=== PATIENT | female | born 1935 | race Caucasian/White ===

== ENCOUNTER 2019-03-05 15:58 | Inpatient (IN) | payer MEDICARE ==
[~2019-03-05] VITALS: Ht 162.6 cm; Wt 68.2 kg
[2019-03-05] MEDS ORDERED: nitroGLYCERIN 0.4mg SUBLingual tab SL PRN ×2 (16:10→17:45)
[2019-03-05] MEDS ORDERED: aspirin 81mg tab.chew PO ONE (16:10)
[2019-03-05 16:40] LABS: BASOPHILS # (AUTO) 0.1 X10'3 (0-0.2); EOSINOPHILS # (AUTO) 0.1 X10'3 (0-0.9); EOSINOPHILS % (AUTO) 1.8 % (0-6); HEMATOCRIT 39.4 % (35.0-45.0); HEMOGLOBIN 13.2 g/dl (12.0-16.0); LYMPHOCYTES # (AUTO) 1.4 X10'3 (1.1-4.8); LYMPHOCYTES % (AUTO) 18.9 % (21-51); MEAN CORPUSCULAR HEMOGLOBIN 30.9 PG (27.0-31.0); MEAN CORPUSCULAR HGB CONC 33.6 g/dL (33.0-36.5); MEAN CORPUSCULAR VOLUME 92.2 FL (78-98); MEAN PLATELET VOLUME 7.6 FL (7.4-10.4); MONOCYTES # (AUTO) 0.8 X10'3 (0-0.9); NEUTROPHILS # (AUTO) 5.2 X10'3 (1.8-7.7); NEUTROPHILS % (AUTO) 68.3 % (42-75); PLATELET COUNT 286 X10'3 (140-440); RED BLOOD COUNT 4.27 X10'6 (4.20-5.60); RED CELL DISTRIBUTION WIDTH 14.3 % (11.5-14.5); WHITE BLOOD COUNT 7.6 X10'3 (4.5-11.0)
[2019-03-05 16:53] LABS: ALANINE AMINOTRANSFERASE 23 U/L (12-78); ALBUMIN/GLOBULIN RATIO 1.2 (1.1-1.5); ALKALINE PHOSPHATASE 71 IU/L (46-116); ANION GAP 9 (8-16); ASPARTATE AMINO TRANSFERASE 17 U/L (10-37); BILIRUBIN,TOTAL 0.6 MG/DL (0.1-1.0); BLOOD UREA NITROGEN 16 MG/DL (7-18); BUN/CREATININE RATIO 16.7 (6.6-38.0); CALCIUM 9.2 MG/DL (8.5-10.1); CHLORIDE 103 MMOL/L (99-107); CREATININE 0.96 MG/DL (0.40-0.90); GLUCOSE 105 MG/DL (70-104); POTASSIUM 3.2 MMOL/L (3.5-5.1); SODIUM 140 MMOL/L (135-145); TOTAL CARBON DIOXIDE 27.9 MMOL/L (24-32); TOTAL PROTEIN 7.4 G/DL (6.4-8.2); eGFR 56 ML/MIN
[2019-03-05] MEDS ORDERED: ATOR10TA PO (17:30)
[2019-03-05] MEDS ORDERED: LEVO100T9 PO (17:30)
[2019-03-05] MEDS ORDERED: ASPI-611 PO (17:30)
[2019-03-05] MEDS ORDERED: HYDR25TA4 PO (17:30)
[2019-03-05] MEDS ORDERED: ondansetron/PF 4mg/2ml inj IV PRN (17:45)
[2019-03-05] MEDS ORDERED: morphine 2 MG/ML inj. syringe IV PRN (17:45)
[2019-03-05] MEDS ORDERED: aminophylline 250mg/10ml inj. IV PRN (17:45)
[2019-03-05] MEDS ORDERED: regadenoson 0.4mg/5ml syringe IV PRN (17:45)
[2019-03-05] MEDS ORDERED: magnesium 4gm in 100ml NS 100 ML IV PRN (17:45)
[2019-03-05] MEDS ORDERED: magnesium 2GM in 50ml NS 50 ML IV PRN (17:45)
[2019-03-05] MEDS ORDERED: potassium Cl 40MEQ/NS 500ml 500 ML IV PRN ×2 (17:45)
[2019-03-05] MEDS ORDERED: HYDROcodone/acetaminophen 5mg/325mg tablet PO PRN (17:45)
[2019-03-05] MEDS ORDERED: metoprolol tartrate 1mg/ml inj IV PRN (17:45)
[2019-03-05] MEDS ORDERED: acetaminophen 325mg tablet PO PRN ×2 (17:45)
[2019-03-05] MEDS ORDERED: magnesium Cl slow-release 64mg tablet PO PRN (17:45)
[2019-03-05] MEDS ORDERED: potassium Cl 20 mEq SR tablet PO PRN ×2 (17:45)
[2019-03-05] MEDS: normal saline 1000ml 1,000 ML IV SCH (18:54)
--- NOTE | 2019-03-05 19:30 | NUR ---
Pt arrived to floor via gurney on monitor. Was able to walk 1PA to bed. Accompanied by . Denies any chest pain at this time. VSS, BP 51, patient states this is normal to her, typically between 50-60 bpm.
[2019-03-05] MEDS: docusate sod 100mg capsule PO SCH (20:00)
[2019-03-05] MEDS: heparin, porcine 5000 units/ml vial SQ SCH (20:00)
[2019-03-05 20:21] VITALS: BP 136/85
--- NOTE | 2019-03-05 21:00 | NUR ---
Patient refused both heparin and colace. Advised of risk vs. benefit of medication. Patient stated her called Dr. De Luna when he arrived home to advise him of the symptoms the patient was feeling. States Dr. De Luna told her to come see him. Patient no longer feels as if she needs to be in the hospital. Explained a stress test will be preformed in the AM to rule abnormalities. Patient seems agreeable at this time.
--- NOTE | 2019-03-05 21:37 | NUR ---
Per supervisor telephone information, patient has been sustained in the 50's, will have temporary drops into 40's. Will continue to monitor.
--- NOTE | 2019-03-05 21:40 | NUR ---
Patient sleeping. Will DART and preform 2 RN Skin check in the AM when lab rounds.
[2019-03-05 22:00] VITALS: BP 154/70
--- NOTE | 2019-03-05 23:35 | NUR ---
service technician informed of pt dropping down to 48 HR. Patient states no symptoms. MD notified that pt typically runs 50-60's at home. MD states when sleeping she will drop down and as long as she is asymptomatic, there is no need to worry.
[2019-03-06] VITALS (10 sets, daily range): BP systolic 120–150; BP diastolic 54–65
[2019-03-06 04:13] LABS: BASOPHILS # (AUTO) 0.1 X10'3 (0-0.2); EOSINOPHILS # (AUTO) 0.2 X10'3 (0-0.9); HEMATOCRIT 35.1 % (35.0-45.0); HEMOGLOBIN 11.8 g/dl (12.0-16.0); LYMPHOCYTES # (AUTO) 1.5 X10'3 (1.1-4.8); LYMPHOCYTES % (AUTO) 28.4 % (21-51); MEAN CORPUSCULAR HEMOGLOBIN 30.6 PG (27.0-31.0); MEAN CORPUSCULAR HGB CONC 33.5 g/dL (33.0-36.5); MEAN CORPUSCULAR VOLUME 91.4 FL (78-98); MEAN PLATELET VOLUME 7.5 FL (7.4-10.4); MONOCYTES # (AUTO) 0.5 X10'3 (0-0.9); NEUTROPHILS # (AUTO) 3.1 X10'3 (1.8-7.7); NEUTROPHILS % (AUTO) 58.6 % (42-75); PLATELET COUNT 242 X10'3 (140-440); RED BLOOD COUNT 3.84 X10'6 (4.20-5.60); RED CELL DISTRIBUTION WIDTH 14.1 % (11.5-14.5); WHITE BLOOD COUNT 5.3 X10'3 (4.5-11.0)
[2019-03-06 04:22] LABS: ALANINE AMINOTRANSFERASE 19 U/L (12-78); ALBUMIN 3.2 G/DL (3.4-5.0); ALBUMIN/GLOBULIN RATIO 1.1 (1.1-1.5); ALKALINE PHOSPHATASE 57 IU/L (46-116); ANION GAP 8 (8-16); ASPARTATE AMINO TRANSFERASE 15 U/L (10-37); BILIRUBIN,TOTAL 0.5 MG/DL (0.1-1.0); BLOOD UREA NITROGEN 17 MG/DL (7-18); CALCIUM 8.2 MG/DL (8.5-10.1); CHLORIDE 107 MMOL/L (99-107); CREATININE 0.68 MG/DL (0.40-0.90); GLUCOSE 93 MG/DL (70-104); POTASSIUM 3.3 MMOL/L (3.5-5.1); SODIUM 141 MMOL/L (135-145); TOTAL CARBON DIOXIDE 26.5 MMOL/L (24-32); eGFR 83 ML/MIN
[2019-03-06 04:24] LABS: CHOL/HDL RATIO 1.6 (0.00-4.99); CHOLESTEROL 156 MG/DL (0-200); HDL CHOLESTEROL 100 MG/DL (35-60); LDL CHOLESTEROL 49 MG/DL (50-100); MAGNESIUM 1.8 MG/DL (1.5-2.4); TRIGLYCERIDES 48 MG/DL (20-135)
--- NOTE | 2019-03-06 06:12 | NUR ---
Problems reprioritized. Patient report given, questions answered & plan of care reviewed with ABI Hicks.
[2019-03-06] MEDS ORDERED: non-formulary drug (Aspirin (Aspir 81) 1 TAB) PO SCH (08:00)
[2019-03-06] MEDS ORDERED: aspirin 81mg tablet.DR PO SCH (08:00)
[2019-03-06] MEDS: docusate sod 100mg capsule PO SCH (08:00)
[2019-03-06] MEDS ORDERED: K and/or MAG REPLACEMENT MC SCH (08:00)
[2019-03-06] MEDS ORDERED: atorvastatin 10mg tablet PO SCH (08:00)
[2019-03-06] MEDS ORDERED: levoTHYROXINE 100mcg tablet PO SCH (08:00)
[2019-03-06] MEDS ORDERED: HYDROchlorothiazide 25mg tablet PO SCH (08:00)
[2019-03-06] MEDS ORDERED: aspirin 81mg tab.chew PO SCH (08:30)
[2019-03-06] MEDS ORDERED: aminophylline inj. 10 ML IV ONE (09:26)
[2019-03-06] MEDS ORDERED: regadenoson 0.4mg/5ml syringe IV ONE (09:26)
[2019-03-06] MEDS: heparin, porcine 5000 units/ml vial SQ SCH (11:46)
--- NOTE | 2019-03-06 12:10 | NUR ---
PAGER ID: [phone] MESSAGE: Room [address] [place]. Can patient eat post stress test? no current diet order. [facility] [id number]
--- NOTE | 2019-03-06 12:42 | NUR ---
Pt okay to eat per DR Gastelum
[2019-03-06] MEDS: normal saline 1000ml 1,000 ML IV SCH (13:44)
--- NOTE | 2019-03-06 17:34 | NUR ---
pt DCd, stable, IV discontinued, tele off, no prescriptions to call in
== END 2019-03-06 17:29 | disposition home or self-care (01) | DRG 206 ==
LOC: ER 15:59 → PCU 3S 17:50 → CMPBEDREQ 19:41
PROVIDERS: ADMIT Internal Medicine; ATTEND Internal Medicine
PROC: 4A02XM4 Measurement of Cardiac Total Activity, External Approach (ICD-10-PCS; principal; 2019-03-06)
PROC: 3E033HZ Introduction of Radioactive Substance into Peripheral Vein, Percutaneous Approach (ICD-10-PCS; 2019-03-06)
DX: M94.0 Chondrocostal junction syndrome [Tietze] (principal); E03.9 Hypothyroidism, unspecified; E78.00 Pure hypercholesterolemia, unspecified; E78.5 Hyperlipidemia, unspecified; I10 Essential (primary) hypertension; I35.0 Nonrheumatic aortic (valve) stenosis; M41.9 Scoliosis, unspecified; Z90.710 Acquired absence of both cervix and uterus; Z79.899 Other long term (current) drug therapy
CPT/HCPCS: 36415; 71045; 78452; 80053; 80061; 83735; 83880; 84443; 84484; 85025; 85610; 87070; 93005; 93017; 93306; 99285; A9500; G0378; J0280; J1644; J7030